=== PATIENT | female | born 1955 | race Two or more races ===

== ENCOUNTER 2020-03-10 18:38 | Emergency (ER) | payer MEDICARE, BC ==
[~2020-03-10] VITALS: Ht 165.1 cm; Wt 80.7 kg
[2020-03-10] MEDS ORDERED: ceFAZolin 1GM/50ML 100 ML IV ONE (19:30)
[2020-03-10] MEDS ORDERED: SODIUM CHLORIDE 0.9% 1,000 ML IV ONE (19:30)
[2020-03-10 19:45] VITALS: BP 138/72
[2020-03-10] MEDS ORDERED: CLINDAMYCIN HCL 150 MG CAP PO ONE (21:00)
[2020-03-10] MEDS ORDERED: LIDOCAINE 1% HCL (LOCAL ANESTH.) INJ 20ML MDV ONE (21:00)
[2020-03-10] MEDS ORDERED: cefTRIAXone SOD 1,000 MG VL IM ONE (21:00)
[2020-03-10] MEDS ORDERED: HYDROcodone-ACET 5/325MG TAB PO ONE (21:00)
== END 2020-03-10 21:29 | disposition short-term general hospital (02) ==
LOC: ER 18:38
DX: S61.451A Open bite of right hand, initial encounter (principal); W55.01XA Bitten by cat, initial encounter; Y93.89 Activity, other specified; Y92.89 Other specified places as the place of occurrence of the external cause; Y99.8 Other external cause status
CPT/HCPCS: 73200; 96372; 99284; J0696; J2001